=== PATIENT | female | born 1990 | race American Indian/Alaskan Native ===

== ENCOUNTER 2017-02-15 22:36 | Emergency (ER) | payer SELFPAY ==
[2017-02-15] MEDS ORDERED: Ketorolac 30 MG/ML SDV IVPUSH ONE (22:44)
[2017-02-15] MEDS ORDERED: Acetaminophen/HYDROcodone 325-10 MG Tab PO ONE (22:46)
[2017-02-15] MEDS ORDERED: Ketorolac 30 MG/ML SDV IM ONE (22:46)
[2017-02-15] MEDS ORDERED: Take Home: Acetaminophen/HYDROcodone 325-5 MG, 5 Tab Pack PO ONE (22:53)
--- NOTE | 2017-02-15 22:53 | EDM.PDOC ---
ED HPI GENERAL MEDICAL PROBLEM - General Chief Complaint: ENT Problem Stated Complaint: toothache Time Seen by Provider: 02/15/17 22:39 Source of Information: Reports: Patient History Limitations: Reports: No Limitations - History of Present Illness INITIAL COMMENTS - FREE TEXT/NARRATIVE: Patient has had difficulty and pain with her last upper molar for several months , however this evening around 8 pm developed severe pain to that area. She can not afford dental care which is why it has not been removed. She is a non smoker, no alcohol or drugs. No other complaints. Onset: Today, Sudden Duration: Getting Worse Location: Reports: Other (left upper mouth) Severity: Severe Improves with: Reports: Cold Therapy Worsens with: Reports: None - Related Data Allergies Allergy/AdvReac Type Severity Reaction Status Date / Time No Known Allergies Allergy Verified 02/15/17 22:41 Home Meds: Home Meds . [No Known Home Meds] 02/15/17 [History] Past Medical History HEENT History: Reports: Other (See Below) Other HEENT History: dental caries Social & Family History - Tobacco Use Smoking Status *Q: Current Every Day Smoker Years of Tobacco use: 13 Packs/Tins Daily: 0.5 ED ROS ENT - Review of Systems Review Of Systems: See Below Constitutional: Reports: No Symptoms HEENT: Reports: Dental Pain, Other Respiratory: Reports: No Symptoms Cardiovascular: Reports: No Symptoms Endocrine: Reports: No Symptoms GI/Abdominal: Reports: No Symptoms : Reports: No Symptoms Musculoskeletal: Reports: No Symptoms Skin: Reports: No Symptoms Neurological: Reports: No Symptoms Psychiatric: Reports: No Symptoms Hematologic/Lymphatic: Reports: No Symptoms Immunologic: Reports: No Symptoms ED EXAM, ENT - Physical Exam Exam: See Below Exam Limited By: No Limitations General Appearance: Alert, WD/WN, Moderate Distress Mouth/Throat: Dental Pain, Dental Tenderness, Other (last left upper molar is largely decayed with caries visible within the middle of the tooth) Head: Atraumatic, Normocephalic Neck: Normal Inspection, Supple, Non-Tender, Full Range of Motion Extremities: Normal Inspection, Normal Range of Motion Neurological: Alert, Oriented, CN II-XII Intact, Normal Cognition, Normal Gait, Normal Reflexes, No Motor/Sensory Deficits Psychiatric: Normal Affect, Normal Mood Skin: Warm, Dry, Intact Lymphatic: No Adenopathy Course - Vital Signs Last Recorded V/S: Last Vital Signs Temp 36.1 C 02/15/17 22:36 Pulse 73 02/15/17 22:36 Resp 24 H 02/15/17 22:36 BP 131/93 H 02/15/17 22:36 Pulse Ox 99 02/15/17 22:36 - Orders/Labs/Meds Orders: Active Orders 24 hr Category Date Time Status Acetaminophen/HYDROcodone [Dexter 325-10 MG] Med 02/15/17 22:46 Once 1 tab PO ONETIME ONE Ketorolac [Toradol] Med 02/15/17 22:46 Once 30 mg IM ONETIME ONE Meds: Medications Discontinued Medications Generic Name Dose Route Start Last Admin Trade Name Kenneth PRN Reason Stop Dose Admin Ketorolac Tromethamine 30 mg 02/15/17 22:44 Toradol IVPUSH 02/15/17 22:45 ONETIME ONE Lidocaine HCl 5 ml 02/15/17 22:44 Xylocaine-Mpf 1% INJECT 02/15/17 22:45 ONETIME ONE - Re-Assessments/Exams Free Text/Narrative Re-Assessment/Exam: 02/15/17 23:01 Patient injected with 2 mL of lidocaine to upper left jaw. Patient tolerated without problems. Pain eliminated Departure - Departure Time of Disposition: 23:07 Disposition: Home, Self-Care 01 Condition: Good Clinical Impression: Dental caries - Discharge Information Forms: ED Department Discharge Additional Instructions: I have given you lidocaine injections for the current pain in your tooth, you have also had a toradol injection for swelling, pain, and inflammation, and you were given a 10/325 mg tablet of hydrocodone. I did also give you a take home packet of 5/325 mg hydrocodone to use tomorrow. This will not treat the reason for your pain which I suspect is a series cavity that also has involved the nerve root of that tooth. This does need to be either removed or treated based on a dentist's opinion otherwise you will continue to have problems with this tooth and may lead to a serious infection. Please call the phone numbers we have provided you to get more information on more affordable dental care. Call us with any questions or concerns. - Problem List & Annotations (1) Dental caries SNOMED Code(s): 28377078 Code(s): K02.9 - DENTAL CARIES, UNSPECIFIED Status: Acute Priority: Low Current Visit: Yes - Problem List Review Problem List Initiated/Reviewed/Updated: Yes - My Orders Last 24 Hours: My Active Orders 02/15/17 22:46 Acetaminophen/HYDROcodone [Dexter 325-10 MG] 1 tab PO ONETIME ONE Ketorolac [Toradol] 30 mg IM ONETIME ONE - Assessment/Plan Last 24 Hours: My Active Orders 02/15/17 22:46 Acetaminophen/HYDROcodone [Dexter 325-10 MG] 1 tab PO ONETIME ONE Ketorolac [Toradol] 30 mg IM ONETIME ONE Assessment:: left upper molar cavity Plan: I have given you lidocaine injections for the current pain in your tooth, you have also had a toradol injection for swelling, pain, and inflammation, and you were given a 10/325 mg tablet of hydrocodone. I did also give you a take home packet of 5/325 mg hydrocodone to use tomorrow. This will not treat the reason for your pain which I suspect is a series cavity that also has involved the nerve root of that tooth. This does need to be either removed or treated based on a dentist's opinion otherwise you will continue to have problems with this tooth and may lead to a serious infection. Please call the phone numbers we have provided you to get more information on more affordable dental care. Call us with any questions or concerns.
== END 2017-02-15 23:12 | disposition home or self-care (01) ==
LOC: VM.ED 22:36
DX: K02.9 Dental caries, unspecified (principal); F17.210 Nicotine dependence, cigarettes, uncomplicated
CPT/HCPCS: 64400; 96372; 99282; 99283; A9270; J1885